=== PATIENT | male | born 1965 | race African-American/Black ===

== ENCOUNTER 2018-07-18 15:54 | Emergency (ER) | payer OTHER, MEDICAID ==
[~2018-07-18] VITALS: Ht 182.9 cm; Wt 70.3 kg
[~2018-07-18 15:54] MED LIST: LEVE500T9 PO
[2018-07-18 16:03] VITALS: BP 137/84
[2018-07-18] MEDS ORDERED: IBUPROFEN 600 MG TABLET PO ONE (16:21)
[2018-07-18] MEDS ORDERED: IBUPROFEN 400 MG TABLET PO ONE (16:30)
== END 2018-07-18 16:56 ==
LOC: ER 15:58
DX: S49.82XA Other specified injuries of left shoulder and upper arm, initial encounter (principal); I10 Essential (primary) hypertension; Z79.899 Other long term (current) drug therapy; W18.39XA Other fall on same level, initial encounter; Y93.89 Activity, other specified; Y92.89 Other specified places as the place of occurrence of the external cause; Y99.8 Other external cause status
CPT/HCPCS: 73030-TC